=== PATIENT | female | born 1995 | race Caucasian/White ===

== ENCOUNTER 2020-06-10 19:59 | Emergency (ER) | payer BC, OTHER, SELFPAY ==
[2020-06-10 20:09] VITALS: BP 121/85; PULSE 99; RESP 16; TEMP 36.7; O2SAT 100
[2020-06-10 21:11] LABS: Basophils Percent Auto 0.2 % (0.2-1.2); Eosinophils Percent Auto 0.5 % (0-4.4); Hemoglobin 11.8 g/dL (12.0-15.0); Immature Granulocyte Absolute 0.03 K/mm3 (0.00-0.031); Immature Granulocyte Percent A 0.4 % (0-0.5); Lymphocytes Absolute Auto 1.77 K/mm3 (0.9-3.2); Lymphocytes Percent Auto 22.1 % (18.3-44.2); Mean Corpuscular HGB Conc 34.7 g/dl (32-36); Mean Corpuscular Hemoglobin 29.5 pg (26-34); Mean Platelet Volume 10.1 fl (7.4-10.4); Monocytes Absolute Auto 0.5 K/mm3 (0.1-0.6); Monocytes Percent Auto 5.7 % (2.6-8.5); Neutrophils Absolute Auto 5.7 K/mm3 (1.3-6.7); Neutrophils Percent Auto 71.1 % (45.5-73.1); Platelet Count Result 241 k/mm3 (150-375); Red Cell Distribution Width 12.2 % (11.5-14.5)
[2020-06-10 21:13] LABS: Add Urine Microscopic? NO; Appearance Urine Clear (Clear); Bilirubin Urine Negative (Negative); Blood Urine Negative (Negative); Color Urine Straw (Yellow); Glucose Urine UA Negative (Negative); Ketones Urine Negative (Negative); Leukocyte Esterase Ur Negative LEU/UL (Negative); Nitrate Urine Negative (Negative); Protein Urine Negative (Negative); Specific Grav Ur 1.006 (1.001-1.035); Urobilinogen Urine Negative mg/dL (<2.0)
[2020-06-10 21:23] LABS: Alanine Aminotransferase 10 U/L (4-35); Albumin Level 3.7 g/dL (3.5-5.1); Alkaline Phosphatase 41 U/L (38-126); Anion Gap 6 mmol/L (8-16); Aspartate Amino Transferase 16 U/L (14-36); Bilirubin,Total 0.2 mg/dL (0.2-1.3); Blood Urea Nitrogen 7 mg/dL (7-17); Calcium 9.1 mg/dL (8.4-10.2); Carbon Dioxide 27 mmol/L (22-30); Chloride 104 mmol/L (98-107); Estimated CRCL calculation 148 ml/min; Estimated Glomerular Filt Rate > 60; Glucose 120 mg/dL (65-105); Potassium 3.5 mmol/L (3.4-5.0); Sodium 137 mmol/L (137-145)
--- NOTE | 2020-06-10 21:50 | ED.GENADULT ---
HPI - General Adult General Chief complaint: Unspecified Stated complaint: paplitations,, right arm numbness Time Seen by Provider: 06/10/20 20:10 History of Present Illness HPI narrative: Patient is a 24-year-old female who presents to the ER with right-sided headache and some upper extremity tingling as well as facial tingling. Headache began around 5:45 PM. [place] like a discomfort. No thunderclap or sharp pain. Lasted for about an hour and resolved. After resolving she developed tingling to her right arm as well as tingling to her right face. Right arm tingling lasted 3 minutes. Right facial tingling lasted 1 minute. No previous history of migraines but has had one headache in the past. No neurologic issues with it at that time. Denies fevers or chills or sweats. , approximately 23 weeks along. Sees [facility]. Related Data Allergies Allergy/AdvReac Type Severity Reaction Status Date / Time Cephalosporins Allergy Intermediate Swelling, Verified 06/10/20 20:01 Hives Penicillins Allergy Mild Hives Verified 06/10/20 20:01 Review of Systems Review of Systems: All systems reviewed & are unremarkable except as noted in HPI and below Constitutional: Constitutional: Denies chills, Reports headache(s) and Denies weakness Cardiovascular: Cardiovascular: Denies chest pain and Denies rapid heart rate Respiratory: Respiratory: Denies cough and Denies dyspnea Gastrointestinal: Gastrointestinal: Denies abdominal pain, Denies nausea and Denies vomiting Neurologic: Denies Abnormal speech present, Denies focal weakness and Reports tingling PMFSH Past Medical History Medical History (Updated 06/10/20 @ 22:14 by Sanford Lanza MD) Healthy female adult Surgical History Surgical History (Updated 06/10/20 @ 22:12 by Sanford Lanza MD) No history of previous surgery Social History Social History (Updated 06/10/20 @ 22:12 by Sanford Lanza MD) Smoking status: Never smoker Exam Narrative: Exam Narrative: GENERAL: Well-appearing, well-nourished, and in no acute distress. HEAD: Normocephalic, atraumatic. CHEST: Clear to auscultation. No respiratory distress. HEART: Regular rate and rhythm. Normal peripheral pulses. ABDOMEN: Soft, nontender, nondistended. EXTREMITIES: Normal range of motion. No edema. SKIN: Warm, dry, no rash. NEURO: No focal deficits. Alert and oriented x3. PSYCH: Normal mood and affect. Course Course Emergency Course: Discussed with Dr. Pickard who is data communications analyst for patients group. Okay with d/c home, no additional recommendations, will have patient follow up in clinic. BP in normal range. Labs unremarkable. Asx at this time. Vital Signs Vital signs: Vital Signs Temperature 98.1 F 06/10/20 20:09 Pulse Rate 99 06/10/20 20:09 Respiratory Rate 16 06/10/20 20:09 Blood Pressure 121/85 06/10/20 20:09 Pulse Oximetry 100 06/10/20 20:09 Temperature 98.1 F 06/10/20 20:09 Pulse Rate 99 06/10/20 20:09 Respiratory Rate 16 06/10/20 20:09 Blood Pressure 121/85 06/10/20 20:09 Pulse Oximetry 100 06/10/20 20:09 Medical Decision Making Vital Signs Vital Signs: Vital Signs Temperature 98.1 F 06/10/20 20:09 Pulse Rate 99 06/10/20 20:09 Respiratory Rate 16 06/10/20 20:09 Blood Pressure 121/85 06/10/20 20:09 Pulse Oximetry 100 06/10/20 20:09 Temperature 98.1 F 06/10/20 20:09 Pulse Rate 99 06/10/20 20:09 Respiratory Rate 16 06/10/20 20:09 Blood Pressure 121/85 06/10/20 20:09 Pulse Oximetry 100 06/10/20 20:09 Lab Data Result diagrams: 06/10/20 21:04 06/10/20 21:04 Labs: Lab Results 06/10/20 06/10/20 06/10/20 Range/Units 21:03 21:04 21:04 WBC 8.0 (4.5-10.0) K/mm3 RBC 4.00 L (4.2-5.4) M/mm3 Hgb 11.8 L (12.0-15.0) g/dL Hct 34.0 L (37.0-47.0) % MCV 85.0 (80-100) fl MCH 29.5 (26-34) pg MCHC 34.7 (32-36)
[2020-06-10 22:17] VITALS: BP 111/73; PULSE 82; RESP 16; TEMP 36.7; O2SAT 99
== END 2020-06-10 22:18 | disposition home or self-care (01) ==
PROVIDERS: Emergency Provider Emergency Medicine
DX: O26.92 Pregnancy related conditions, unspecified, second trimester (principal); R51.9 Headache, unspecified; Z3A.23 23 weeks gestation of pregnancy
CPT/HCPCS: 36415; 80048; 80076; 81003; 85025; 99283

== ENCOUNTER 2023-12-11 15:10 | Outpatient (CLI) | payer BC, SELFPAY ==
--- NOTE | ~2023-12-11 | US_ITS ---
EXAMINATION: US OB /maternal detail DATE: 12/11/2023 15:51 INDICATION: anatomic survey. TECHNIQUE: Real-time ultrasound of the pelvis was performed. COMPARISON: None. FINDINGS: There is a single living fetus in vertex presentation. The placenta is posterior, 5.7 cm from the ce rvix. heart rate is 153 beats per minute (bpm). The amniotic fluid volume is subjectively praful l. The following biometric data were obtained: Biparietal diameter (BPD): 4.6 cm; head circumference (HC): 17.7 cm; abdominal circumference (AC): 14 .7 cm; femur length (FL): 3.1 cm. These measurements are concordant. Estimated weight is 319 g +/- 48 g, which correlates with the 31st percentile when 04/28/24 is used as estimated date of delivery. As single measurements, these parameters are each equal to the following estimated gestational ages: BPD: 20 weeks 0 days. HC: 20 weeks 1 days. AC: 20 weeks 0 days. FL: 19 weeks 5 days. estimated gestational age based solely on measurements from this exam is 20 weeks 0 days +/- 1 weeks 3 days. The cerebral ventricles, cerebellum, cisterna magna, nuchal fold, lip, and visualized portions of the spine are normal. The heart is normal. The diaphragm, stomach, kidneys, and bladder are normal. Ther e are two umbilical arteries to yield a 3-vessel cord. The cord insertion is normal. IMPRESSION: 1. Single living fetus in vertex presentation. 2. Estimated weight is 319 g +/- 48 g, which correlates with the 31st percentile when 04/28/24 is used as estimated date of delivery. 3. Normal anatomic survey. Reviewed, dictated and finalized at location A. IMPRESSION: 1. Single living fetus in vertex presentation. 2. Estimated weight is 319 g +/- 48 g, which correlates with the 31st pe rcentile when 04/28/24 is used as estimated date of delivery. 3. Normal anatomic survey.
== END 2023-12-11 15:11 ==
PROVIDERS: PCP Obstetrics & Gynecology; Visit Provider Obstetrics & Gynecology
DX: Z36.9 Encounter for antenatal screening, unspecified (principal); Z3A.20 20 weeks gestation of pregnancy
CPT/HCPCS: 76805